=== PATIENT | male | born 1965 | race Caucasian/White ===

== ENCOUNTER 2022-10-17 05:00 | Day surgery (SDC) | payer BC, MEDICAID ==
[~2022-10-17] VITALS: Ht 167.6 cm; Wt 80.3 kg
[2022-10-17] MEDS ORDERED: MIDAZOLAM HCL 2 MG/2 ML VIAL (VERSED) IVP PRN (09:00)
[2022-10-17] MEDS ORDERED: HYDROmorphone 1 MG/ML INJ. CARTRIDGE IVP PRN ×4 (09:00→13:45)
[2022-10-17] MEDS ORDERED: METOCLOPRAMIDE HCL 10 MG/2 ML VIAL IVP PRN (09:00)
[2022-10-17] MEDS ORDERED: LR 1,000 ML IV SCH (09:00)
[2022-10-17] MEDS ORDERED: LABETALOL 100 MG/ 20ML VIAL IVP PRN (09:00)
[2022-10-17] MEDS ORDERED: MEPERIDINE HCL/PF 25 MG/ML DISP.SYRIN IVP PRN (09:00)
[2022-10-17] MEDS ORDERED: hydrALAZINE HCL 20 MG/ML VIAL IVP PRN (09:00)
[2022-10-17] MEDS ORDERED: PROPOFOL 200MG/ 20ML VIAL (DIPRIVAN) IV ONE (11:43)
[2022-10-17] MEDS ORDERED: LIDOCAINE 2%, 20 ML MDV ONE (11:43)
[2022-10-17] MEDS ORDERED: ROCURONIUM BROMIDE 10 MG/ML (ZEMURON) ONE (11:43)
[2022-10-17] MEDS ORDERED: MIDAZOLAM HCL 5 MG/ML VIAL (VERSED) IV ONE (11:43)
[2022-10-17] MEDS ORDERED: MUPIROCIN 1 GM OIN.PF.APP NS ONE (11:43)
[2022-10-17] MEDS ORDERED: LABETALOL 100 MG/ 20ML VIAL ONE (11:43)
[2022-10-17] MEDS ORDERED: ONDANSETRON HCL 4 MG/2 ML VIAL ONE (11:43)
[2022-10-17] MEDS ORDERED: NS IRRIG SOLN 1000 ML IR ONE (11:43)
[2022-10-17] MEDS ORDERED: DEXAMETHASONE SOD PHOSPHATE 4 MG/ML VIAL ONE (11:43)
[2022-10-17] MEDS ORDERED: NS 1000 ML IV.SOLN IV ONE (11:43)
[2022-10-17] MEDS ORDERED: WATER FOR IRRIGATION,STERILE 1,000 ML IRRIG.SOLN IR ONE (11:43)
[2022-10-17] MEDS ORDERED: fentaNYL CITRATE/PF 100 MCG/2 ML AMP ONE (11:43)
[2022-10-17] MEDS ORDERED: EPINEPHrine HCL 1 MG/ML VIAL ONE (11:43)
[2022-10-17] MEDS ORDERED: LR 1,000 ML IV.SOLN IV ONE (11:43)
[2022-10-17] MEDS ORDERED: LIDOCAINE 1% 10 MG/ML, 20 ML MDV ONE (11:43)
[2022-10-17] MEDS ORDERED: LIDOCAINE/EPI 1% 1:100000 20 ML VIAL ONE (11:43)
[2022-10-17] MEDS ORDERED: DESFLURANE 15 MIN GAS INH ONE (11:43)
[2022-10-17 16:58] VITALS: BP_SYST 130
== END 2022-10-17 15:25 | disposition home or self-care (01) ==
LOC: SMU 05:00 → SDS 05:00
PROVIDERS: ATTEND Otolaryngology
DX: J34.2 Deviated nasal septum (principal); D38.5 Neoplasm of uncertain behavior of other respiratory organs; J33.8 Other polyp of sinus; I10 Essential (primary) hypertension; E78.5 Hyperlipidemia, unspecified; R35.1 Nocturia; R43.0 Anosmia; Z20.822 Contact with and (suspected) exposure to COVID-19; Z79.899 Other long term (current) drug therapy
CPT/HCPCS: 87081; 36415 ×2; 31296; 31299; 30140; 30520; 31256; 31287; 88305; 88311; 87426; U0003; J1100; J0171; J3490; J2001 ×2; J2250; J3465; J2405; J2704; J3010; J7120; J7030; C1726